=== PATIENT | female | born 1990 ===

== ENCOUNTER 2017-02-12 16:13 | Inpatient (IN) | payer OTHER ==
[2016-12-12 10:43] VITALS: BMI 23.8
[2017-02-12] MEDS ORDERED: Lactated Ringer's 1,000 ML IV SCH (17:30)
[2017-02-12 17:44] LABS: BASO % 0.3 % (0.0-2.0); EOS % 0.4 % (0.0-4.0); LYMPH # 0.8 K/uL (1.0-4.3); LYMPH % 7.8 % (20.0-40.0); MEAN CORPUSCULAR HEMOGLOBIN 28.4 pg (27.0-31.0); MEAN CORPUSCULAR HGB CONC 32.7 g/dL (33.0-37.0); MEAN PLATELET VOLUME 11.4 fL (7.2-11.7); MONO # 0.7 K/uL (0.0-0.8); MONO % 7.1 % (0.0-10.0); NRBC % 0.1 % (0.0-2.0); PLATELET COUNT 181 K/uL (130-400); RED CELL DISTRIBUTION WIDTH 16.4 % (11.5-14.5); WHITE BLOOD COUNT 10.5 K/uL (4.8-10.8)
[2017-02-12 17:46] LABS: MEAN CELL VOLUME 86.9 fL (81.0-99.0)
[2017-02-12 17:52] LABS: RBC URINE 22 /hpf (0-3); URINE BACTERIA RARE (<OCC); URINE BILIRUBIN NEGATIVE (NEGATIVE); URINE BLOOD 2+ (NEGATIVE); URINE COLOR Amber (YELLOW); URINE GLUCOSE (UA) NORMAL (Normal); URINE KETONE NEGATIVE (NEGATIVE); URINE LEUKOCYTE ESTERASE TRACE Leu/uL (Negative); URINE PROTEIN 2+ mg/dL (NEGATIVE); WBC URINE 9 /hpf (0-5)
--- NOTE | 2017-02-12 17:53 | OBHP ---
Datetime: 02/12/2017 16:30 IP Adm Impression: Term, intrauterine ; No Active Labor; Ruptured Membranes IP Admit Plan: Admit to unit; Initiate labor protocol IP Admit Plan Other: Cervical ripening Admit Comment, IP Provider: 26 yo , LMP unsure (got right treatment for ectopic pre gnancy 2015), ELSIE 02/19/17, EGA 39 weeks c/o passing "sqirts of clear fluid per vagina" since 1100 hour s; clear. Onset of abdomnal pain/cramps 0300 hours; pain scale 8/10 throughout the day. (+) AFM; Isael es VB. Last had sexual intercourse 02/11/17. care: Dr. Moya, since 23 weeks. GBS (-) P Ob: Spont ab x 2: 2004, 2013, both less than 3 months, no D_C. 2007, VTOP x 1, 11 weeks, with D _C. 2015, ectopic , treated with MTX. P [employer]: 11 x irregular, 2 - 7 months x 3. Denies STIs PMH: denies PSH: D_C x 1; 2012, bilateral breast augmentation. 2016, lasik eye surgery Med: PNV and folic acid - QD Soc Hx: denies tobacco, illicit drug or EtOHause. With FOB x 1 1/2 years. Unemployed Fam Hx: Mother alive 52 - HTN. Father alive 57 - dyslipidemia. No known fam h/o cancer P.E.: as above. WD in NAD. Awake, alert, disoriented to time, person and place. Pleasant and coope rative. FOB present Assessment: 27 y.o. P0040, 39 weeks, SROM. For cervical ripening. This was explained to patient; a long with possible pitocin augmentation; and pain management options. Patient expressed an understand ing and agrees. No questions offered. Clinically stable. Plan: 1) Admit 2) NPO 3) IVFs 4) Continuous EFM 5) Admisson labs 6) Cervidil 7) Pain management, upon request 8) Anticipate vaginal delivery - as per, and discussed with, Dr. Moya Pelvic Type - PN: Adequate Extremities - PN: Normal Abdomen - PN: Normal Back - PN: Normal Breast - PN: Not Done Lungs - PN: Normal Heart - PN: Normal Thyroid - PN: Not Done Neurologic - PN: Normal HEENT - PN: Normal General - PN: Normal Presentation-Admit: Vertex FHR - Baseline A Provider: 140 Contraction Comments Provider: irregular Comments, ACOG Physical Exam: Skin: warm, dry, intact Abdomen: Gravid. Soft, non tender in all quadrants. Fundal height 37 cm Perineum: dry Spec: nitrazine (+) All other systems reviewed and are negative. Gestation - Est Wks by US: 39.0 IP Hx Assessment: The History has been Reviewed and is Current Vital Signs Provider: Reviewed; Within Normal Limits IP Indication for Induction: Not Applicable IP Chief Complaint: Uterine contractions; Suspected ruptured membranes NICHD Variability Prov Fetus A: Moderate 6-25bpm NICHD Accel Fetus A IP Provider: 15X15 FHR Category Provider Fetus A: Category I NICHD Decel Fetus A IP Provider: None Dilatation, Provider: 2 Effacement, Provider: 50 Station, Provider: -2 Genitourinary Exam: Normal DTRs - PN: Not Done
[2017-02-12 17:54] LABS: CHLORIDE 104 mmol/L (98-107); SODIUM 135 mmol/L (132-148)
[2017-02-12 17:56] LABS: BILIRUBIN,TOTAL 0.9 mg/dL (0.2-1.3); GFR AFRICAN-AMERICAN > 60
[2017-02-12 17:57] LABS: ALKALINE PHOSPHATASE 207 U/L (38-126); ALT/SGPT 14 U/L (9-52); AST/SGOT 30 U/L (14-36); BLOOD UREA NITROGEN 12 mg/dL (7-17); CARBON DIOXIDE 19 mmol/L (22-30); GLUCOSE,RANDOM 75 mg/dL (65-105); TOTAL PROTEIN 6.5 g/dL (6.3-8.3)
[2017-02-12 17:58] LABS: CALCIUM 8.3 mg/dl (8.6-10.4)
[2017-02-12 18:15] LABS: NEUTROPHIL 87 % (50-75); TOTAL CELLS COUNTED 100
[2017-02-12 18:16] LABS: LARGE PLATELETS PRESENT
--- NOTE | 2017-02-12 20:19 | OBPN ---
Datetime: 02/12/2017 20:10 IP Progress Plan: Continue present management; Cervical Ripening; Anticipate Vaginal Delivery Membranes, Provider: Ruptured Contraction Comments Provider: 6-8 min FHR - Baseline A Provider: 150 Gestation - Est Wks by US: 39.0 Presentation-Admit: Vertex IP Progress Note Comment: Patient reports ctx are the same in intensity, i.e. pain scale 8/10; and h ave increased in frequency - now every 8 minutes. V.E.: as above. Cervidil placed in posterior vaginal vault. Assessment: 26 yo P0040, 39w SROM; cervical ripening - as above. Category [address] able. Plan: 1) As above. 2) anticipate vaginal delivery - as per Dr. Moya Vital Signs Provider: Reviewed; Within Normal Limits NICHD Accel Fetus A IP Provider: 15X15 FHR Category Provider Fetus A: Category I NICHD Variability Prov Fetus A: Moderate 6-25bpm Dilatation, Provider: 2 Effacement, Provider: 50 Station, Provider: -2 NICHD Decel Fetus A IP Provider: None
[2017-02-12] MEDS ORDERED: Nalbuphine 20 mg/ml Inj (1 ml) IVP PRN (21:30)
[2017-02-13] MEDS ORDERED: Nalbuphine 20 mg/ml Inj (1 ml) ONE (01:53)
[2017-02-13] MEDS ORDERED: Lidocaine 2% Inj (20ml) ONE (06:16)
--- NOTE | 2017-02-13 06:37 | OBDS ---
DELIVERY PERSONNEL Delivery Doctor: Tameka White MD Scrub Nurse: Virgie Patel Information Tech: Mora Bro RN MATERNAL INFORMATION Delivery Anesthesia: Local Medications in Delivery: Pitocin Estimated Blood Loss (ml): 200 Placenta Cultured: No Maternal Complications: None RN Comments: live baby girl born via with 9_9 Provider Comments: Uncomplicated en caul vaginal delivery of live female , KYRA position, over intact perineum - light meconium liquor at time of delivery. Tight nuchal cord x 1; doubly clamped an d cut. Infant's mouth and nose bulb suctioned after delivery of body; handed to pediatric staf f for resuscitation. Segment of cord obtained for cord pH analysis. Spontaneous delivery of placenta - grossly intact; 3 vessel cord Examination of cervix, vagina and perineum - lacerations as above. Repaired as abov.e Mother tolerated procedure well. Infant and mother bonding. LABOR SUMMARY EDC: 02/19/2017 00:00 No. Babies in Womb: 1 Attempted: No Labor Anesthesia: None LABOR INFORMATION Reason for Induction: Not Applicable Onset of Labor: 02/12/2017 16:30 Complete Dilatation: 02/13/2017 05:05 Cervical Ripening Agents: Cervidil (Annotations: 10mg inserted vaginally by ) Group B Beta Strep: Negative Steroids Given: None Reason Steroids Not Administered: Not Applicable MEMBRANES Membranes Rupture Method: Spontaneous Rupture of Membranes: 02/12/2017 11:00 Length of Rupture (hrs): 19.12 Amniotic Fluid Color: Clear Amniotic Fluid Amount: Small Amniotic Fluid Odor: Normal STAGES OF LABOR Stage 1 hrs: 12 Stage 1 min: 35 Stage 2 hrs: 1 Stage 2 min: 2 Stage 3 hrs: 0 Stage 3 min: 5 Total Time in Labor hrs: 13 Total Time in Labor min: 42 VAGINAL DELIVERY Episiotomy: None Laceration Extension: First Degree Laceration Type: Periurethral Other Laceration: 2* perineal Laceration Repair: Yes Laceration Repair Note: 3-0 chromic, running interlocking Hemostasis assured Initial Vag Sponge Count: 10 Final Vag Sponge Count: 10 Initial Vag Sharps Count: 1 Final Vag Sharps Count: 1 Sponge Count Correct: Yes; Vaginal Sweep Performed Count Comment: Correct BABY A INFORMATION Infant Delivery Date/Time: 02/13/2017 06:07 Method of Delivery: Vaginal Born in Route : No : N/A Forceps: N/A Vacuum Extraction: N/A Shoulder Dystocia : No SHOULDER DYSTOCIA BABY A Delivery Date/Time: 02/13/2017 06:07 PRESENTATION/POSITION BABY A Presentation: Cephalic Cephalic Presentation: Vertex Vertex Position: Right Occipital Anterior Breech Presentation: N/A PLACENTA INFORMATION BABY A Placenta Delivery Time : 02/13/2017 06:12 Placenta Method of Delivery: Spontaneous Placenta Status: Delivered SCORES BABY A Heart Rate 1 min: >100 bpm Resp Effort 1 min: Good Cry Reflex Irritability 1 min: Cough or Sneeze or Pulls Away Muscle Tone 1 min: Active Motion Color 1 min: Body [place], Extremities Blue SCORE 1 MIN: 9 Heart Rate 5 min: >100 bpm Resp Effort 5 min: Good Cry Reflex Irritability 5 min: Cough or Sneeze or Pulls Away Muscle Tone 5 min: Active Motion Color 5 min: Body [place], Extremities Blue SCORE 5 MIN: 9 INFANT INFORMATION BABY A Gestational Age at Delivery: 39.1 Gestational Status: Term Infant Outcome : Liveborn Infant Condition : Stable Sex: Female IDENTIFICATION/MEDS BABY A ID Band Number: [id number] ID Band Location: Left Leg; Left Arm Sensor Applied: Yes Sensor Number: [id number] Sensor Location : Cord Clamp WEIGHT/LENGTH BABY A Infant Birthweight (gms): 2805 Infant Weight (lb): 6 Infant Weight (oz): 3 Length Inches: 19.00 Infant Length cms: 48.3 CORD INFORMATION BABY A No. Cord Vessels: 3 Nuchal Cord : Around Neck x1, Tight Cord Blood Taken: Yes Suction: Mouth; Nose ASSESSMENT BABY A Complications: None Physical Findings at Delivery: Within Normal Limits Infant Respirations: Appears Normal Vocational Services Specialist/ALS Called : No Care By: Fareed NormanRN Transferred To: Remains with Mother
[2017-02-13] MEDS ORDERED: Oxytocin 30 UNIT 30 UNITS/500 ML BAG IV SCH (07:30)
[2017-02-13 16:59] VITALS: RESP 20
[2017-02-14 08:09] LABS: HEMATOCRIT 34.6 % (34.0-47.0); MEAN CELL VOLUME 86.9 fL (81.0-99.0); MEAN CORPUSCULAR HEMOGLOBIN 28.7 pg (27.0-31.0); MEAN PLATELET VOLUME 11.5 fL (7.2-11.7); RED CELL DISTRIBUTION WIDTH 16.7 % (11.5-14.5); WHITE BLOOD COUNT 13.7 K/uL (4.8-10.8)
[2017-02-15 07:48] VITALS: BP 122/85; PULSE 77; TEMP 97; O2SAT 98
--- NOTE | 2017-02-15 10:43 | OBPPN ---
Datetime: 02/14/2017 10:40 PP Pain Prov: Within normal limits PP Nausea Prov: Denies PP Flatus Prov: Yes PP Breasts Prov: Normal PP Heart Prov: Normal PP Lungs Prov: Normal PP Abdomen/Uterus Prov: Normal PP Lochia Prov: Normal PP Vulva/Perineum Prov: Normal PP CVA Tenderness Prov: Normal PP Extremities Prov: Normal PP Comments Phys Exam Prov: Abd: Soft, NT, BS - present PP Impression Prov: Normal progression PP Plan Prov: Continue present management PP Progress Note Prov: S/P , Clinically Stable. Plan: Continue care Vital Signs Provider PP: Reviewed
--- NOTE | 2017-02-15 10:48 | OBPPN ---
Datetime: 02/15/2017 10:43 PP Pain Prov: Within normal limits PP Nausea Prov: Denies PP Flatus Prov: Yes PP Breasts Prov: Normal PP Heart Prov: Normal PP Lungs Prov: Normal PP Abdomen/Uterus Prov: Normal PP Lochia Prov: Normal PP Vulva/Perineum Prov: Normal PP CVA Tenderness Prov: Normal PP Extremities Prov: Normal PP Comments Phys Exam Prov: Abd: soft, NT, BS- present PP Impression Prov: Normal progression PP Plan Prov: Discharge PP Progress Note Prov: S/P , Clinically Stable. Plan: Discharge
--- NOTE | 2017-02-15 10:50 | OBDCSUM ---
Datetime: 02/15/2017 10:46 Discharged to, Provider: Home Follow up at, Provider: Dr Moay Disch Instr Activity: Normal activity Disch Instr Diet: Regular Discharge Instructions, Provider: Routine instructions given Discharge Diagnosis, Provider: Term Delivered Discharge Time: 02/15/2017 10:47 Follow up in weeks, Provider: 6 weeks Disch Referrals: None Contraception discussed, Prov: Yes Discharge Comment, Provider: S/P , Clinically Stable Discharge Diagnosis Prov Other: S/P , Clinically Stable
== END 2017-02-15 13:00 | disposition home or self-care (01) | DRG 373 ==
LOC: C.EROB 16:13 → C.4D 17:04 → C.4M 02-13 08:15
PROVIDERS: ADMIT Obstetrics & Gynecology; ATTEND Obstetrics & Gynecology
PROC: 10E0XZZ Delivery of Products of Conception, External Approach (ICD-10-PCS; principal; 2017-02-13)
PROC: 3E0P7GC Introduction of Other Therapeutic Substance into Female Reproductive, Via Natural or Artificial Opening (ICD-10-PCS; 2017-02-13)
PROC: 0KQM0ZZ Repair Perineum Muscle, Open Approach (ICD-10-PCS; 2017-02-13)
DX: O69.1XX0 Labor and delivery complicated by cord around neck, with compression, not applicable or unspecified (principal); O77.0 Labor and delivery complicated by meconium in amniotic fluid; Z3A.39 39 weeks gestation of pregnancy; Z37.0 Single live birth; O70.1 Second degree perineal laceration during delivery